=== PATIENT | female | born 1975 | race Caucasian/White ===

== ENCOUNTER 2017-12-07 06:20 | Outpatient (CLI) | payer BC ==
[~2017-12-07] VITALS: Ht 154.9 cm; Wt 130.6 kg
[2017-12-07] MEDS ORDERED: OMEP40CA36 PO (13:07)
[2017-12-07] MEDS ORDERED: LISI-552 PO (13:07)
== END 2017-12-07 13:11 ==
LOC: PREOP 06:20 → EDUNIT# 13:15
PROVIDERS: ATTEND Surgery
DX: Z01.818 Encounter for other preprocedural examination (principal)

== ENCOUNTER 2017-12-10 06:28 | Day surgery (SDC) | payer BC ==
[~2017-12-10] VITALS: Ht 154.9 cm; Wt 130.6 kg
[~2017-12-10 06:28] MED LIST: LISI-552 PO; OMEP40CA36 PO
[2017-12-10] MEDS ORDERED: SEVOFLURANE (ULTANE) 15 ML INHAL SOLN ONE ×4 (07:04→08:25)
[2017-12-10] MEDS ORDERED: LIDOCAINE PF 2% 5 ML (XYLOCAINE) VIAL ONE (07:04)
[2017-12-10] MEDS ORDERED: DEXAMETHASONE 10 MG/ML (DECADRON) 1 ML VIAL ONE (07:04)
[2017-12-10] MEDS ORDERED: SUCCINYLCHOLINE INJ 100 MG/5 ML SYR ONE (07:04)
[2017-12-10] MEDS ORDERED: proPOfol 200 MG/20 ML (DIPRIVAN) VIAL IV ONE (07:04)
[2017-12-10] MEDS ORDERED: ONDANSETRON 4 MG/2 ML (SDV) Z0FRAN ONE (07:04)
[2017-12-10] MEDS ORDERED: fentaNYL INJECTION 100 MCG/2 ML AMP ONE ×2 (07:07→08:58)
[2017-12-10] MEDS ORDERED: MIDAZOLAM 2 MG/2 ML (VERSED) VIAL ONE (07:07)
[2017-12-10] MEDS ORDERED: BUPIVACAINE 0.5% 30 ML (SENSORCAINE) VIAL ONE (07:12)
[2017-12-10] MEDS ORDERED: LIDOCAINE 1% INJ 20 ML 20 ML VIAL ONE (07:12)
[2017-12-10] MEDS: LACTATED RINGERS 1,000 ML IV PRN ×2 (07:25→09:00)
[2017-12-10] MEDS ORDERED: ceFAZolin 2 GM IV Premixed 50 ML ONE (07:30)
[2017-12-10 07:40] VITALS: BP 122/61
[2017-12-10] MEDS ORDERED: ceFAZolin 2 GM IV Premixed 50 ML IV ONE (07:45)
--- NOTE | 2017-12-10 08:04 | Progress Note-Pre Operative ---
Pre-Operative Progress Note H&P Reviewed The H&P was reviewed, patient examined and no changes noted. Date Seen by Provider: December 10, 2017 Time Seen by Provider: 08:00 Date H&P Reviewed: December 10, 2017 Time H&P Reviewed: 08:00 Pre-Operative Diagnosis: lipoma back CHAN MARTINEZ DO December 10, 2017 08:04
[2017-12-10] MEDS ORDERED: DOXY100C2 PO (08:06)
[2017-12-10] MEDS ORDERED: ASPI-999 PO (08:06)
[2017-12-10] MEDS ORDERED: ROCURONIUM 10 MG/ML 5 ML SYRINGE IV ONE (09:00)
--- NOTE | 2017-12-10 09:28 | Progress Note-Post Operative ---
Post-Operative Progess Note Surgeon (s)/Computer Lab Aide (s) Surgeon CHAN MARTINEZ DO Computer Lab Aide: na Pre-Operative Diagnosis lipoma back Post-Operative Diagnosis same Procedure & Operative Findings Date of Procedure 12/10/17 Procedure Performed/Findings excision back lipoma intramuscular and subcutaneous [id number] Anesthesia Type gen Estimated Blood Loss Estimated blood loss (mL): minimal Specimens/Packing Specimens Removed lipoma CHAN MARTINEZ DO December 10, 2017 09:28
--- NOTE | 2017-12-10 09:48 | Discharge Inst-Simple/Standard ---
Discharge Inst-Standard Patient Instructions/Follow Up Plan of Care/Instructions/FU: 2 weeks Kaya Activity as Tolerated: Yes Discharge Diet: Regular Diet Other Inst to Patient Follow up Appt: Make appointment for 2 week. Instructions: No lifting greater than 10 pounds. No strenuous activity. May shower in 24 hours, no tub bath or soaking. Use incentive spirometer at home as directed. No Smoking Skin/Wound Care: May remove bandages 24 hours. You need to leave the white strips over incision on they will fall off on their own. Symptoms to Report: Appetite Changes, Extremity Discoloration, Numbness/Tingling, Swelling Increased , Bleeding Excessive, Eyesight Changes, Pain Increased, Urine Color Change, Constipation(Persistent), Fever over 101 degree F, Pain/Pressure in chest, Urinating Difficulty, Cough Up/Vomit Blood, Heart Beat Irreg/Pounding, Pain/ Pressure in jaw, Vaginal Bleeding Increase, Cramps in feet or legs, Lightheadedness, Pain/Pressure in shoulder, Diarrhea(Persistent), Memory Changes Suddenly, Questions/Concerns, Weight gain consecutive days, Dizziness/ Fainting, Nausea/Vomiting, Shortness of Breath, Weight gain over 2 pounds If questions or concerns contact your physician Or seek help at emergency department. CHAN MARTINEZ DO December 10, 2017 09:48
[2017-12-10 10:35] VITALS: BP 111/80
[2017-12-10 11:05] VITALS: BP 106/72
[2017-12-10 11:40] VITALS: BP 119/75
--- NOTE | 2017-12-10 13:58 | Anesthesia-General Post-Op ---
General Patient Condition Mental Status/LOC: Same as Preop Cardiovascular: Satisfactory Nausea/Vomiting: Absent Respiratory: Satisfactory Pain: Controlled Complications: Absent Post Op Complications Complications None Follow Up Care/Instructions Patient Instructions None needed. Anesthesia/Patient Condition Patient Condition Patient is doing well, no complaints, stable vital signs, no apparent adverse anesthesia problems. JOSEFA MCDONNELL DO December 10, 2017 13:58
--- NOTE | 2017-12-10 16:37 | OPERATIVE REPORT ---
DATE OF SERVICE: 12/10/2017 PREOPERATIVE DIAGNOSIS: Back lipoma. POSTOPERATIVE DIAGNOSIS: Back lipoma. PROCEDURE: Excision of back lipoma 5 x 8 x 8 cm subcutaneous and intramuscular layers. SURGEON: Chan Kirkpatrick DO. ANESTHESIA: General. ESTIMATED BLOOD LOSS: Minimal. COMPLICATIONS: None. INDICATIONS: The patient is a 42-year-old female with a lipoma on her back that causes pain and discomfort. She wished to have it removed. She understands risks and benefits and wishes to proceed. Consent signed and on the chart. DESCRIPTION OF PROCEDURE: The patient was taken to the operating suite, she was prepped and draped in a sterile fashion in the left lateral recumbent position. A timeout was performed. A 15 blade scalpel was used to make an incision over the palpable mass. Cautery was used to dissect down to subcutaneous tissue when the lipoma was encountered. The blunt dissection was then continued around the lipoma that has had multiple fingers off of the mass as it continued to be mobilized around, it also went intramuscularly, which the muscles were able to be blunt finger dissection was able to free up off from in between the muscles. Once removed, the wound was irrigated with copious amounts of irrigation. Hemostasis had been achieved. The wound was then closed with 3-0 Vicryl in a layered fashion. Creating less wound space and the skin was then closed using 4-0 and 3-0 nylon sutures. The area was then washed and dried and sterile bandage was applied. The patient tolerated procedure well without any complications and taken to recovery room in stable condition. Job ID: [id number] DocumentID: [id number] Dictated Date: 12/10/2017 13:32:33 Professor Of Genetics Date: 12/10/2017 16:36:14 Dictated By: CHAN KIRKPATRICK DO [facility]
== END 2017-12-10 11:40 | disposition home or self-care (01) ==
LOC: SDC 06:28
PROVIDERS: ATTEND Surgery
DX: D17.1 Benign lipomatous neoplasm of skin and subcutaneous tissue of trunk (principal); I10 Essential (primary) hypertension; J44.9 Chronic obstructive pulmonary disease, unspecified; J45.909 Unspecified asthma, uncomplicated; F17.210 Nicotine dependence, cigarettes, uncomplicated; E66.01 Morbid (severe) obesity due to excess calories; Z68.43 Body mass index [BMI] 50.0-59.9, adult; Z79.899 Other long term (current) drug therapy
CPT/HCPCS: 87081; 88304

== ENCOUNTER 2018-09-08 22:33 | Emergency (ER) | payer BC, MEDICAID ==
[~2018-09-08] VITALS: Ht 154.9 cm; Wt 127.0 kg
[~2018-09-08 22:33] MED LIST changes: +ASPI-999 PO; +DOXY100C2 PO
--- OUTSIDE RECORDS SUMMARY | 2018-09-08 22:51 | XMS REPORT ---
Author Author ARLETTE DOAN [facility] Address [address] [place] [address] Care Team Providers Care Shoulder Sawyer Name Role Phone ARLETTE DOAN Unavailable PROBLEMS Type Condition ICD9-CM Code [id number] Code Onset Dates Condition Status SNOMED Code Problem Moderate persistent asthma with acute exacerbation J45.41 Active 329360924739508 Problem H. pylori infection A04.8 Active 980431886 Problem Essential hypertension I10 Active 55599890 Problem BMI 50.0-59.9, adult Z68.43 Active 797657103 ALLERGIES No Information ENCOUNTERS Encounter Location Date Diagnosis [place] [address] [place] [id number] [place] [address] 50159- 1779 Dec, [place] [address] 45972[address] 8066 November, H. pylori infection A04.8 and BMI 50.0-59.9, adult Z68.43 [place] [address] [id number] [place] [address] 44747- 7423 November, [place] [address] [place] [id number] [place] [address] 08245- 6819 November, [place] [address] [place] [id number] [place] [address] 68616- 8700 November, Moderate persistent asthma with acute exacerbation J45.41 [place] [address] 12391- 5316 November, BMI 50.0-59.9, adult Z68.43 ; Left upper quadrant pain R10.12 and H. pylori infection A04.8 [place] [address] [address] [id number] [place] [address] 33285- 5505 November, Intractable vomiting with nausea, unspecified vomiting type R11.2 [facility] [address] [place] [address] 72724- 7849 November, Atypical chest pain R07.89 ; Lipoma of torso D17.1 and BMI 50.0-59.9, adult Z68.43 [place] [address] [id number] [place] [address] 10728- 4557 Oct, Annual physical exam Z00.00 ; Intractable vomiting with nausea, unspecified vomiting type R11.2 ; Pap smear for cervical cancer screening Z12.4 and BMI 50.0-59.9, adult Z68.43 [facility] [place] [address] [address] [id number] [place] [address] 15447 -4143 19 Sep, 2017 [facility] [place] [address] [address] [id number] [place] [address] 46505 -8586 Sep, Dental infection K04.7 and BMI 50.0-59.9, adult Z68.43 [place] [address] [place] [id number] [place] [address] 25013- 9621 Sep, [place] [address] [place] [id number] [place] [address] 82864- 5511 Sep, [place] [address] [place] [id number] [place] [address] 15581- 5763 Sep, Chest pain, unspecified type R07.9 ; BMI 50.0-59.9, adult Z68.43 and Essential hypertension I10 IMMUNIZATIONS No Known Immunizations SOCIAL HISTORY Never Assessed REASON FOR VISIT Requests return call PLAN OF CARE VITAL SIGNS MEDICATIONS Unknown Medications RESULTS No Results PROCEDURES No Known procedures INSTRUCTIONS MEDICATIONS ADMINISTERED No Known Medications MEDICAL (GENERAL) HISTORY Type Description Date Medical History HTN Medical History ASTHMA Medical History PTSD Medical History fatty tumor Surgical History Hospitalization History asthma exacerbations several times
--- OUTSIDE RECORDS SUMMARY | 2018-09-08 22:51 | XMS REPORT ---
Author Author ARLETTE DOAN [facility] Address [address] [place] [address] Care Team Providers Care Certified Low Vision Therapist Name Role Phone ARLETTE DOAN Unavailable PROBLEMS Type Condition ICD9-CM Code XVD71-EP Code Onset Dates Condition Status SNOMED Code Problem Moderate persistent asthma with acute exacerbation J45.41 Active 575894445568456 Problem H. pylori infection A04.8 Active 590184181 Problem Essential hypertension I10 Active 64225829 Problem BMI 50.0-59.9, adult Z68.43 Active 016818467 ALLERGIES No Information ENCOUNTERS Encounter Location Date Diagnosis [place] [address] [place] [id number] [place] [address] 40032- 4860 Dec, [place] [address] 14993- 6719 November, H. pylori infection A04.8 and BMI 50.0-59.9, adult Z68.43 [place] [address] [place] [id number] [place] [address] 08313- 3306 November, [place] [address] [place] [id number] [place] [address] 50913- 9905 November, [place] [address] [place] [id number] [place] [address] 86313- 3156 November, Moderate persistent asthma with acute exacerbation J45.41 [place] [address] 08705- 5047 November, BMI 50.0-59.9, adult Z68.43 ; Left upper quadrant pain R10.12 and H. pylori infection A04.8 [place] [address] [place] [id number] [place] [address] 82320- 2234 November, Intractable vomiting with nausea, unspecified vomiting type R11.2 [facility] [place] [address] [place] [address] 58507- 7579 November, Atypical chest pain R07.89 ; Lipoma of torso D17.1 and BMI 50.0-59.9, adult Z68.43 [place] [address] [place] [id number] [place] [address] 34169- 6278 Oct, Annual physical exam Z00.00 ; Intractable vomiting with nausea, unspecified vomiting type R11.2 ; Pap smear for cervical cancer screening Z12.4 and BMI 50.0-59.9, adult Z68.43 [facility] [place] [address] [place] [address] [id number] [place] [address] 12796 -8548 19 Sep, 2017 [facility] [place] [address] [place] [address] [id number] [place] [address] 92847 -9770 Sep, Dental infection K04.7 and BMI 50.0-59.9, adult Z68.43 [place] [address] [place] [id number] [place] [address] 83727- 4042 Sep, [place] [address] [place] [id number] [place] [address] 98662- 0268 Sep, [place] [address] [place] [id number] [place] [address] 48400- 5533 Sep, Chest pain, unspecified type R07.9 ; [...]
--- OUTSIDE RECORDS SUMMARY | 2018-09-08 22:51 | XMS REPORT ---
Author Author ARLETTE DOAN [facility] Address [address] [place] [address] Care Team Providers Care Reciprocating Drill Operator Name Role Phone ARLETTE DOAN Unavailable PROBLEMS Type Condition ICD9-CM Code JTZ21-NX Code Onset Dates Condition Status SNOMED Code Problem Moderate persistent asthma with acute exacerbation J45.41 Active 130932613011869 Problem H. pylori infection A04.8 Active 406705118 Problem Essential hypertension I10 Active 30914386 Problem BMI 50.0-59.9, adult Z68.43 Active 645200567 ALLERGIES No Information ENCOUNTERS Encounter Location Date Diagnosis [place] [address] [place] [id number] [place] [address] 12297- 4034 Feb, [facility] [address] [address] [id number] [place] [address] 03475- 7134 Dec, [place] [address] 58720- 8815 November, H. pylori infection A04.8 and BMI 50.0-59.9, adult Z68.43 [place] [address] [place] [id number] [place] [address] 26740- 7537 November, [place] [address] [place] [id number] [place] [address] 00279- 2821 November, [place] [address] [place] [id number] [place] [address] 88952- 8099 November, Moderate persistent asthma with acute exacerbation J45.41 [facility] [address] [place] [id number] [place] [address] 62158- 4491 November, BMI 50.0-59.9, adult Z68.43 ; Left upper quadrant pain R10.12 and H. pylori infection A04.8 [place] [id number] [place] [address] 15334- 8287 November, Intractable vomiting with nausea, unspecified vomiting type R11.2 [place] [id number] [place] [address] 73344- 0392 November, Atypical chest pain R07.89 ; Lipoma of torso D17.1 and BMI 50.0-59.9, adult Z68.43 [place] [id number] [place] [address] 38452- 2990 Oct, Annual physical exam Z00.00 ; Intractable vomiting with nausea, unspecified vomiting type R11.2 ; Pap smear for cervical cancer screening Z12.4 and BMI 50.0-59.9, adult Z68.43 [facility] [place] [id number] [place] [address] 02930 -3869 19 Sep, 2017 [facility] WALK IN [address] 63683 -1324 17 Sep, 2017 Dental infection K04.7 and BMI 50.0-59.9, adult Z68.[address] 85716- 5616 Sep, [place] [id number] [place] [address] 10398- 9738 Sep, [place] [id number] [place] [address] 38131- 5177 Sep, Chest pain, unspecified type R07.9 ; BMI 50.0-59.9, adult Z68.43 and Essential hypertension I10 IMMUNIZATIONS No Known Immunizations SOCIAL HISTORY Never Assessed REASON FOR VISIT Nebulizer PLAN OF CARE VITAL SIGNS MEDICATIONS Medication Instructions Dosage Frequency Start Date End Date Duration Status Ipratropium-Albuterol 0.5-2.5 (3) MG/3ML Inhalation every 6 hrs 3 ml 6h November, Active RESULTS No Results PROCEDURES No Known procedures INSTRUCTIONS MEDICATIONS ADMINISTERED No Known Medications MEDICAL (GENERAL) HISTORY Type Description Date Medical History HTN Medical History ASTHMA Medical History PTSD Medical History fatty tumor Surgical History Hospitalization History asthma exacerbations several times
--- OUTSIDE RECORDS SUMMARY | 2018-09-08 22:51 | XMS REPORT ---
Author Author ARLETTE DOAN [facility] Address [address] [place] [address] Care Team Providers Care Child Care Centre Director Name Role Phone ARLETTE DOAN Unavailable PROBLEMS Type Condition ICD9-CM Code PCU29-ND Code Onset Dates Condition Status SNOMED Code Problem Moderate persistent asthma with acute exacerbation J45.41 Active 211445156785421 Problem H. pylori infection A04.8 Active 737388005 Problem Essential hypertension I10 Active 22699878 Problem BMI 50.0-59.9, adult Z68.43 Active 140087939 ALLERGIES Substance Reaction Event Type Date Status Vicodin Anaphylaxis Drug Allergy November, Active Tramadol HCl HIVES Drug Allergy November, Active Flagyl Unknown Drug Allergy November, Active Codeine Sulfate Anaphylaxis Drug Allergy November, Active Clarithromycin Unknown Drug Allergy November, Active Amoxicillin RASH Drug Allergy November, Active shellfish Anaphylaxis Non Drug Allergy November, Active ALL SSRI's Anaphylaxis Non Drug Allergy November, Active ENCOUNTERS Encounter Location Date Diagnosis [facility] [address] [place] [address] Dec, [facility] [address] [place] [id number] [place] [address] 41068- 4886 November, H. pylori infection A04.8 and BMI 50.0-59.9, adult Z68.43 [facility] [address] [place] [address] 46645- 6666 November, [facility] [address] [place] [id number] [place] [address] 85274- 6435 November, [facility] [address], [place] [address] 9116 November, Moderate persistent asthma with acute exacerbation J45.41 [facility] [address] [place] [id number] [place] [address] 71081- 0295 November, BMI 50.0-59.9, adult Z68.43 ; Left upper quadrant pain R10.12 and H. pylori infection A04.8 [place] [address] [place] [address] [id number] [place] [address] 49683- 2547 November, Intractable vomiting with nausea, unspecified vomiting type R11.2 [place] [id number] [place] [address] 58224- 6355 November, Atypical chest pain R07.89 ; Lipoma of torso D17.1 and BMI 50.0-59.9, adult Z68.43 [place] [address] [place] [address] [id number] [place] [address] 95074- 6279 Oct, Annual physical exam Z00.00 ; Intractable vomiting with nausea, unspecified vomiting type R11.2 ; Pap smear for cervical cancer screening Z12.4 and BMI 50.0-59.9, adult Z68.43 [facility] [address] [place] [id number] [place] [address] 75444 -7986 Sep, [facility] [place] [address] [id number] [place] [address] 46904 -8568 17 Sep, 2017 Dental infection K04.7 and BMI 50.0-59.9, adult Z68.43 [place] [address] [place] [address] [id number] [place] [address] 65131- 2782 Sep, [place] [address] [place] [address] [id number] [place] [address] 51379- 0107 Sep, [place] [address] [place] [address] [id number] [place] [address] 34186- 5756 Sep, Chest pain, unspecified type R07.9 ; BMI 50.0-59.9, adult Z68.43 and Essential hypertension I10 IMMUNIZATIONS No Known Immunizations SOCIAL HISTORY Never Assessed REASON FOR VISIT Med Reaction PLAN OF CARE VITAL SIGNS MEDICATIONS Unknown Medications RESULTS No Results PROCEDURES No Known procedures INSTRUCTIONS MEDICATIONS ADMINISTERED No Known Medications MEDICAL (GENERAL) HISTORY Type Description Date Medical History HTN Medical History ASTHMA Medical History PTSD Medical History fatty tumor Surgical History Hospitalization History asthma exacerbations several times
--- OUTSIDE RECORDS SUMMARY | 2018-09-08 22:51 | XMS REPORT ---
Author Author ARLETTE DOAN [facility] Address [address] [place] [address] Care Team Providers Care Evp Sales Name Role Phone ARLETTE DOAN Unavailable PROBLEMS Type Condition ICD9-CM Code YBY31-XJ Code Onset Dates Condition Status SNOMED Code Problem Moderate persistent asthma with acute exacerbation J45.41 Active 378929611361664 Problem H. pylori infection A04.8 Active 099800951 Problem Essential hypertension I10 Active 02003501 Problem BMI 50.0-59.9, adult Z68.43 Active 901629981 ALLERGIES Substance Reaction Event Type Date Status Vicodin Anaphylaxis Drug Allergy Sep, Active Tramadol HCl HIVES Drug Allergy Sep, Active Codeine Sulfate Anaphylaxis Drug Allergy Sep, Active Amoxicillin RASH Drug Allergy Sep, Active ALL SSRI's Anaphylaxis Non Drug Allergy Sep, Active ENCOUNTERS Encounter Location Date Diagnosis [place] [address] [place] [address] 74512- 1396 Dec, [facility] [address] [place] [address] [id number] [place] [address] 84486- 8056 November, H. pylori infection A04.8 and BMI 50.0-59.9, adult Z68.43 [facility] [address] [address]- 2043 November, [facility] [address] [address]- 4[address] November, [facility] [address] [place] [address] [id number] [place] [address] 48963- 9593 November, Moderate persistent asthma with acute exacerbation J45.41 [facility] [address] [place] [address] 64474- 9895 November, BMI 50.0-59.9, adult Z68.43 ; Left upper quadrant pain R10.12 and H. pylori infection A04.8 [place] [id number] [place] [address] 27487- 3051 November, Intractable vomiting with nausea, unspecified vomiting type R11.2 [place] [id number] [place] [address] 98349- 7784 November, Atypical chest pain R07.89 ; Lipoma of torso D17.1 and BMI 50.0-59.9, adult Z68.43 [place] [address] [place] [address] [id number] [place] [address] 24426- 8864 Oct, Annual physical exam Z00.00 ; Intractable vomiting with nausea, unspecified vomiting type R11.2 ; Pap smear for cervical cancer screening Z12.4 and BMI 50.0-59.9, adult Z68.43 [facility] IN [place] [id number] [place] [address] 13686 -4362 19 Sep, 2017 [facility] IN [place] [id number] [place] [address] 92600 -7155 Sep, Dental infection K04.7 and BMI 50.0-59.9, adult Z68.43 [place] [address] [place] [address] [id number] [place] [address] 65319- 4375 Sep, [place] [id number] [place] [address] 63752- 9537 Sep, [place] [id number] [place] [address] 95671- 1186 Sep, Chest pain, unspecified type R07.9 ; BMI 50.0-59.9, adult Z68.43 and Essential hypertension I10 IMMUNIZATIONS No Known Immunizations SOCIAL HISTORY Never Assessed REASON FOR VISIT Establish ABEBE Gracia, Went to hospital in [place], [place] 2 weeks ago for chest pain and left arm pain. She was checked for an GA but the studies were all negative. States she is set up to see cardiology 09/22 - Dr. García. -BAEBE Wetzel PLAN OF CARE Activity Details Follow Up 2 Months with [facility] appt Reason: VITAL SIGNS Height 61 in 2017-09-17 Weight 315 lbs 2017-09-17 Temperature 98 degrees Fahrenheit 2017-09-17 Heart Rate 90 bpm 2017-09-17 Respiratory Rate 20 2017-09-17 BMI 59.51 kg/m2 2017-09-17 Blood pressure systolic 110 mmHg 2017-09-17 Blood pressure diastolic 70 mmHg 2017-09-17 MEDICATIONS Medication Instructions Dosage Frequency Start Date End Date Duration Status Ventolin HFA 108 (90 Base) MCG/ACT Inhalation every 6 hrs 2 puffs as needed 6h Active Famotidine 20 MG Orally Once a day 1 tablet at bedtime 24h Active EPINEPHrine 0.15 MG/0.3ML Active Lisinopril 20 MG Orally Once a day 1 tablet 24h Active RESULTS No Results PROCEDURES No Known procedures INSTRUCTIONS MEDICATIONS ADMINISTERED No Known Medications MEDICAL (GENERAL) HISTORY Type Description Date Medical History HTN Medical History ASTHMA Medical History PTSD Medical History fatty tumor Surgical History Hospitalization History asthma exacerbations several times
--- OUTSIDE RECORDS SUMMARY | 2018-09-08 22:51 | XMS REPORT ---
Author Author KIEL العلي [facility] IN [facility] Address [address] [place] [address] Care Team Providers Care Housing Specialist Name Role Phone KIEL العلي Unavailable PROBLEMS Type Condition ICD9-CM Code [id number] Code Onset Dates Condition Status SNOMED Code Problem Moderate persistent asthma with acute exacerbation J45.41 Active 783124133847240 Problem H. pylori infection A04.8 Active 968107523 Problem Essential hypertension I10 Active 60833161 Problem BMI 50.0-59.9, adult Z68.43 Active 879848104 ALLERGIES Substance Reaction Event Type Date Status Vicodin Anaphylaxis Drug Allergy November, Active Tramadol HCl HIVES Drug Allergy November, Active Codeine Sulfate Anaphylaxis Drug Allergy November, Active Amoxicillin RASH Drug Allergy November, Active ALL SSRI's Anaphylaxis Non Drug Allergy November, Active shellfish Anaphylaxis Non Drug Allergy November, Active ENCOUNTERS Encounter Location Date Diagnosis [facility] [id number] [place] [address] 88132- 0427 Feb, [facility] [id number] [place] [address] 27442- 8818 Dec, [facility] [id number] [place] [address] 68166- 2766 November, H. pylori infection A04.8 and BMI 50.0-59.9, adult Z68.43 [facility] [id number] [place] [address] 46032- 6596 November, [facility] [address] [address]- 5553 November, [facility] [id number] [place] [address] 81913- 5556 November, Moderate persistent asthma with acute exacerbation J45.41 [place] [address] [place] [address] 01419- 7705 November, BMI 50.0-59.9, adult Z68.43 ; Left upper quadrant pain R10.12 and H. 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 and BMI 50.0-59.9, adult Z68.43 [place] [id number] [place] [address] 29177- 5838 Oct, Annual physical exam Z00.00 ; Intractable vomiting with nausea, unspecified vomiting type R11.2 ; Pap smear for cervical cancer screening Z12.4 and BMI 50.0-59.9, adult Z68.43 [facility] [id number] [place] [address] 79469 -9830 Sep, [facility] [id number] [place] [address] 70666 -6111 Sep, Dental infection K04.7 and BMI 50.0-59.9, adult Z68.43 [place] [id number] [place] [address] 65004- 3322 Sep, [place] [id number] [place] [address] 99758- 7253 Sep, [place] [id number] [place] [address] 23312- 9913 Sep, Chest pain, unspecified type R07.9 ; BMI 50.0-59.9, adult Z68.43 and Essential hypertension I10 IMMUNIZATIONS No Known Immunizations SOCIAL HISTORY Never Assessed REASON FOR VISIT Stomach pain-began last night, occurs after eating, states it was like a burning sensation-AHarrymanRN PLAN OF CARE Activity Details Follow Up 2 Weeks, prn Reason:if abdominal pain persists after treatment VITAL SIGNS Height 61 in 2017-11-25 Weight 294.7 lbs 2017-11-25 Temperature 97.0 degrees Fahrenheit 2017-11-25 Heart Rate 84 bpm 2017-11-25 Respiratory Rate 20 2017-11-25 BMI 55.68 kg/m2 2017-11-25 Blood pressure systolic 122 mmHg 2017-11-25 Blood pressure diastolic 70 mmHg 2017-11-25 MEDICATIONS Medication Instructions Dosage Frequency Start Date End Date Duration Status Lisinopril 20 mg Orally Once a day 1 tablet 24h 90 days Active Ventolin HFA 108 (90 Base) MCG/ACT Inhalation every 6 hrs 2 puffs as needed 6h Active Aspirin 81 MG Orally Once a day 1 tablet 24h November, Active Clarithromycin 500 mg Orally every 12 hrs 1 tablet 12h November,November 14 days Active EPINEPHrine 0.15 MG/0.3ML Active Omeprazole 40 mg Orally Once a day 1 capsule 24h November, 90 days Active [facility] Omeprazole 20 mg Orally twice a day 1 tablet 12h November, 14 days Active Chantix Starting Month Mynor 0.5 MG X 11 & 1 MG X 42 0.5mg x11 then 1mg x42 November, Active Metronidazole 500 mg Orally every 8 hrs 1 tablet 8h November, November, 14 days Active RESULTS Name Result Date Reference Range H PYLORI (IN HOUSE) 2017-11-25 H. PYLORI pos Control pos Lot # [id number] Exp date 06/02/18 GLUCOSE FINGERSTICK (IN HOUSE) 2017-11-25 GLU FINGERSTICK 141 PC Lot # [id number] Exp date 02/12/18 PROCEDURES Procedure Date Ordered Result Body Site IMMUNOASSAY,INFECTIOUS AGENT November 25, 2017 GLUCOSE BLOOD TEST November 25, 2017 INSTRUCTIONS MEDICATIONS ADMINISTERED No Known Medications MEDICAL (GENERAL) HISTORY Type Description Date Medical History HTN Medical History ASTHMA Medical History PTSD Medical History fatty tumor Surgical History Hospitalization History asthma exacerbations several times
--- OUTSIDE RECORDS SUMMARY | 2018-09-08 22:51 | XMS REPORT ---
Author Author ARLETTE DOAN [facility] Address [address] [place] [address] Care Team Providers Care Horn Player Name Role Phone ARLETTE DOAN Unavailable PROBLEMS Type Condition ICD9-CM Code [id number] Code Onset Dates Condition Status SNOMED Code Problem Moderate persistent asthma with acute exacerbation J45.41 Active 504311142337732 Problem H. pylori infection A04.8 Active 836240433 Problem Essential hypertension I10 Active 90378317 Problem BMI 50.0-59.9, adult Z68.43 Active 163953061 ALLERGIES Substance Reaction Event Type Date Status [...] November, Active ENCOUNTERS Encounter Location Date Diagnosis [facility] [address] [address] Dec, [facility] [address] [place] [address] 83603- 8465 November, H. pylori infection A04.8 and BMI 50.0-59.9, adult Z68.43 [facility] [address] [address] November, [facility] [id number] [place] [address] 02655- 4051 November, [facility] [address] [address] November, Moderate persistent asthma with acute exacerbation J45.41 [facility] [id number] [place] [address] 12086- 4558 November, BMI 50.0-59.9, adult Z68.43 ; Left upper quadrant pain R10.12 and H. pylori infection A04.8 [place] [id number] [place] [address] 03083- 0472 November, Intractable vomiting with nausea, unspecified vomiting type R11.2 [place] [id number] [place] [address] 33953- 2806 November, Atypical chest pain R07.89 ; Lipoma of torso D17.1 and BMI 50.0-59.9, adult Z68.43 [place] [id number] [place] [address] 16175- 9528 Oct, Annual physical exam Z00.00 ; Intractable vomiting with nausea, unspecified vomiting type R11.2 ; Pap smear for cervical cancer screening Z12.4 and BMI 50.0-59.9, adult Z68.43 [facility] [id number] [place] [address] 93385 -4038 Sep, [facility] [place] [id number] [place] [address] 81818 -3202 17 Sep, 2017 Dental infection K04.7 and BMI 50.0-59.9, adult Z68.43 [place] [id number] [place] [address] 70961- 0663 Sep, [place] [id number] [place] [address] 19704- 6644 Sep, [place] [id number] [place] [address] 12610- 3259 Sep, Chest pain, unspecified type R07.9 ; BMI 50.0-59.9, adult Z68.43 and Essential hypertension I10 IMMUNIZATIONS No Known Immunizations SOCIAL HISTORY Never Assessed REASON FOR VISIT [facility]. [facility] OF CARE Activity Details Follow Up f/u after surgery with [facility] Reason: VITAL SIGNS Height 61 in 2017-12-08 Weight 295 lbs 2017-12-08 Temperature 98.3 degrees Fahrenheit 2017-12-08 Heart Rate 92 bpm 2017-12-08 Respiratory Rate 22 2017-12-08 BMI 55.73 kg/m2 2017-12-08 Blood pressure systolic 100 mmHg 2017-12-08 Blood pressure diastolic 70 mmHg 2017-12-08 MEDICATIONS Medication Instructions Dosage Frequency Start Date End Date Duration Status EPINEPHrine 0.15 MG/0.3ML Active Doxycycline Hyclate 100 mg Orally twice a day 1 capsule 12h November, Dec, 10 day(s) Active Ventolin HFA 108 (90 Base) MCG/ACT Inhalation every 6 hrs 2 puffs as needed 6h Active Lisinopril 20 mg Orally Once a day 1 tablet 24h 90 days Active Omeprazole 40 mg Orally Once a day 1 capsule 24h November, 90 days Active Aspirin 81 MG Orally Once a day 1 tablet 24h November, Active RESULTS No Results PROCEDURES No Known procedures INSTRUCTIONS MEDICATIONS ADMINISTERED No Known Medications MEDICAL (GENERAL) HISTORY Type Description Date Medical History HTN Medical History ASTHMA Medical History PTSD Medical History fatty tumor Surgical History Hospitalization History asthma exacerbations several times
--- OUTSIDE RECORDS SUMMARY | 2018-09-08 22:52 | XMS REPORT ---
Author Author ARLETTE DOAN [facility] Address [address] [place] [address] Care Team Providers Care Motorcycle Police Name Role Phone ARLETTE DOAN Unavailable PROBLEMS Type Condition ICD9-CM Code [id number] Code Onset Dates Condition Status SNOMED Code Problem Moderate persistent asthma with acute exacerbation J45.41 Active 290379049896361 Problem H. pylori infection A04.8 Active 705142060 Problem Essential hypertension I10 Active 26066244 Problem BMI 50.0-59.9, adult Z68.43 Active 137864211 ALLERGIES Substance Reaction Event Type Date Status Vicodin Anaphylaxis Drug Allergy Sep, Active Tramadol HCl HIVES Drug Allergy Sep, Active Codeine Sulfate Anaphylaxis Drug Allergy Sep, Active Amoxicillin RASH Drug Allergy Sep, Active ALL SSRI's Anaphylaxis Non Drug Allergy Sep, Active shellfish Anaphylaxis Non Drug Allergy Sep, Active ENCOUNTERS Encounter Location Date Diagnosis [place] [address] [place] [address] 89236- 2898 Feb, [facility] [address] [place] [address] 63970- 3245 Dec, [facility] [id number] [place] [address] 46656- 1272 November, H. pylori infection A04.8 and BMI 50.0-59.9, adult Z68.43 [facility] [address] [place] [address] 15600- 2704 November, [facility] [id number] [place] [address] 72281- 6698 November, [facility] [id number] [place] [address] 09598- 8253 November, Moderate persistent asthma with acute exacerbation J45.41 [place] [address] [place] [address] 30776- 8879 November, BMI 50.0-59.9, adult Z68.43 ; Left upper quadrant pain R10.12 and H. pylori infection A04.8 [place] [id number] [place] [address] 02430- 5941 November, Intractable vomiting with nausea, unspecified vomiting type R11.2 [place] [id number] [place] [address] 69110- 9531 November, Atypical chest pain R07.89 ; Lipoma of torso D17.1 and BMI 50.0-59.9, adult Z68.43 [place] [id number] [place] [address] 45790- 6999 Oct, Annual physical exam Z00.00 ; Intractable vomiting with nausea, unspecified vomiting type R11.2 ; Pap smear for cervical cancer screening Z12.4 and BMI 50.0-59.9, adult Z68.43 [facility] [id number] [place] [address] 27494 -8217 Sep, [facility] [place] [id number] [place] [address] 29370 -3077 Sep, Dental infection K04.7 and BMI 50.0-59.9, adult Z68.43 [place] [id number] [place] [address] 13147- 7154 Sep, [place] [id number] [place] [address] 54474- 1157 Sep, [place] [id number] [place] [address] 14139- 0481 Sep, Chest pain, unspecified type R07.9 ; [...]
--- OUTSIDE RECORDS SUMMARY | 2018-09-08 22:52 | XMS REPORT ---
Author Author MARSHAL JUÁREZ [facility] IN [facility] Address [address] [place] [address] Care Team Providers Care Anesthesiologist/Physician Name Role Phone MARSHAL JUÁREZ Unavailable PROBLEMS Type Condition ICD9-CM Code QTU71-RE Code Onset Dates Condition Status SNOMED Code Problem Moderate persistent asthma with acute exacerbation J45.41 Active 014991411418054 Problem H. pylori infection A04.8 Active 538440868 Problem Essential hypertension I10 Active 99028192 Problem BMI 50.0-59.9, adult Z68.43 Active 760778952 ALLERGIES Substance Reaction Event Type Date Status Vicodin Anaphylaxis Drug Allergy Sep, Active Tramadol HCl HIVES Drug Allergy Sep, Active Codeine Sulfate Anaphylaxis Drug Allergy Sep, Active Amoxicillin RASH Drug Allergy Sep, Active shellfish Anaphylaxis Non Drug Allergy Sep, Active ALL SSRI's Anaphylaxis Non Drug Allergy Sep, Active ENCOUNTERS Encounter Location Date Diagnosis [facility] [address] [place] [address] 59844- 2424 Feb, [facility] [id number] [place] [address] 03763- 0960 Dec, [facility] [id number] [place] [address] 61460- 9121 November, H. pylori infection A04.8 and BMI 50.0-59.9, adult Z68.43 [facility] [id number] [place] [address] 86896- 9134 November, [facility] [id number] [place] [address] 18554- 3812 November, [facility] [id number] [place] [address] 13885- 2049 November, Moderate persistent asthma with acute exacerbation J45.41 [place] [address] [address]- 4207 November, BMI 50.0-59.9, adult Z68.43 ; Left upper quadrant pain R10.12 and H. pylori infection A04.8 [place] [id number] [place] [address] 78253- 4682 November, Intractable vomiting with nausea, unspecified vomiting type R11.2 [place] [id number] [place] [address] 98409- 8471 November, Atypical chest pain R07.89 ; Lipoma of torso D17.1 and BMI 50.0-59.9, adult Z68.43 [place] [id number] [place] [address] 53826- 1599 Oct, Annual physical exam Z00.00 ; Intractable vomiting with nausea, unspecified vomiting type R11.2 ; Pap smear for cervical cancer screening Z12.4 and BMI 50.0-59.9, adult Z68.43 [facility] [id number] [place] [address] 05587 -5949 Sep, [facility] [id number] [place] [address] 72476 -1118 Sep, Dental infection K04.7 and BMI 50.0-59.9, adult Z68.43 [place] [id number] [place] [address] 04479- 7410 Sep, [place] [id number] [place] [address] 99323- 7383 Sep, [place] [id number] [place] [address] 54728- 9423 Sep, Chest pain, unspecified type R07.9 ; BMI 50.0-59.9, adult Z68.43 and Essential hypertension I10 IMMUNIZATIONS No Known Immunizations SOCIAL HISTORY Never Assessed REASON FOR VISIT dental pain on right upper in the front. states she doesnt want pain meds...ibuprofen will work... just wants an antibiotic for an infection. [email or web address] PLAN OF CARE Activity Details Follow Up see dentist GULSHAN Reason: VITAL SIGNS Height 61 in 2017-10-03 Weight 316.2 lbs 2017-10-03 Temperature 97.5 degrees Fahrenheit 2017-10-03 Heart Rate 88 bpm 2017-10-03 Respiratory Rate 20 2017-10-03 BMI 59.74 kg/m2 2017-10-03 Blood pressure systolic 116 mmHg 2017-10-03 Blood pressure diastolic 74 mmHg 2017-10-03 MEDICATIONS Medication Instructions Dosage Frequency Start Date End Date Duration Status Lisinopril 20 MG Orally Once a day 1 tablet 24h Active Keflex 500 MG Orally every 8 hrs 1 capsule 8h Sep, Sep, 10 day(s) Active Ventolin HFA 108 (90 Base) MCG/ACT Inhalation every 6 hrs 2 puffs as needed 6h Active Famotidine 20 MG Orally Once a day 1 tablet at bedtime 24h Active EPINEPHrine 0.15 MG/0.3ML Active RESULTS No Results PROCEDURES No Known procedures INSTRUCTIONS MEDICATIONS ADMINISTERED No Known Medications MEDICAL (GENERAL) HISTORY Type Description Date Medical History HTN Medical History ASTHMA Medical History PTSD Medical History fatty tumor Surgical History Hospitalization History asthma exacerbations several times
--- OUTSIDE RECORDS SUMMARY | 2018-09-08 22:52 | XMS REPORT ---
Author Author ARLETTE DOAN [facility] Address [address] [place] [address] Care Team Providers Care Destination Imagination Coordinator Name Role Phone ARLETTE DOAN Unavailable PROBLEMS Type Condition ICD9-CM Code [id number] Code Onset Dates Condition Status SNOMED Code Problem Moderate persistent asthma with acute exacerbation J45.41 Active 526921215907253 Problem H. pylori infection A04.8 Active 335642605 Problem Essential hypertension I10 Active 58872913 Problem BMI 50.0-59.9, adult Z68.43 Active 948234169 ALLERGIES Substance Reaction Event Type Date Status Vicodin Anaphylaxis Drug Allergy November, Active Tramadol HCl HIVES Drug Allergy November, Active Codeine Sulfate Anaphylaxis Drug Allergy November, Active Amoxicillin RASH Drug Allergy November, Active ALL SSRI's Anaphylaxis Non Drug Allergy November, Active shellfish Anaphylaxis Non Drug Allergy November, Active ENCOUNTERS Encounter Location Date Diagnosis [place] [address] [place] [address] 73953- 5687 Feb, [facility] [address] [place] [address] 43107- 1715 Dec, [facility] [id number] [place] [address] 54751- 4623 November, H. pylori infection A04.8 and BMI 50.0-59.9, adult Z68.43 [facility] [address] [place] [address] 44898- 9638 November, [facility] [id number] [place] [address] 89253- 5753 November, [facility] [id number], [place] [address]- 0985 November, Moderate persistent asthma with acute exacerbation J45.41 [place] [address] [place] [address] 95018- 0080 November, BMI 50.0-59.9, adult Z68.43 ; Left upper quadrant pain R10.12 and H. pylori infection A04.8 [place] [id number] [place] [address] 84127- 6777 November, Intractable vomiting with nausea, unspecified vomiting type R11.2 [place] [id number] [place] [address] 87992- 6695 November, Atypical chest pain R07.89 ; Lipoma of torso D17.1 and BMI 50.0-59.9, adult Z68.43 [place] [id number] [place] [address] 64267- 2894 Oct, Annual physical exam Z00.00 ; Intractable vomiting with nausea, unspecified vomiting type R11.2 ; Pap smear for cervical cancer screening Z12.4 and BMI 50.0-59.9, adult Z68.43 [facility] [id number] [place] [address] 01146 -2512 Sep, [facility] [id number] [place] [address] 35289 -9055 Sep, Dental infection K04.7 and BMI 50.0-59.9, adult Z68.43 [place] [id number] [place] [address] 87044- 9888 Sep, [place] [id number] [place] [address] 66511- 2359 Sep, [place] [id number] [place] [address] 00505- 0734 Sep, Chest pain, unspecified type R07.9 ; BMI 50.0-59.9, adult Z68.43 and Essential hypertension I10 IMMUNIZATIONS No Known Immunizations SOCIAL HISTORY Never Assessed REASON FOR VISIT f/u cardiology WB-MA PLAN OF CARE Activity Details Follow Up 6 Months with [facility] Weight management Reason: VITAL SIGNS Height 61 in 2017-11-17 Weight 302 lbs 2017-11-17 Temperature 98 degrees Fahrenheit 2017-11-17 Heart Rate 84 bpm 2017-11-17 Respiratory Rate 20 2017-11-17 BMI 57.06 kg/m2 2017-11-17 Blood pressure systolic 134 mmHg 2017-11-17 Blood pressure diastolic 86 mmHg 2017-11-17 MEDICATIONS Medication Instructions Dosage Frequency Start Date End Date Duration Status Ventolin HFA 108 (90 Base) MCG/ACT Inhalation every 6 hrs 2 puffs as needed 6h Active EPINEPHrine 0.15 MG/0.3ML Active Lisinopril 20 MG Orally Once a day 1 tablet 24h Active Prilosec 40 mg Orally Once a day 1 capsule 24h Oct, 30 day(s) Active Famotidine 20 MG Orally Once a day 1 tablet at bedtime 24h Not- Taking RESULTS No Results PROCEDURES No Known procedures INSTRUCTIONS MEDICATIONS ADMINISTERED No Known Medications MEDICAL (GENERAL) HISTORY Type Description Date Medical History HTN Medical History ASTHMA Medical History PTSD Medical History fatty tumor Surgical History Hospitalization History asthma exacerbations several times
--- OUTSIDE RECORDS SUMMARY | 2018-09-08 22:52 | XMS REPORT ---
Author Author JENIFER Talbert Organization [facility] Address [address] [address] Care Team Providers Care Addressograph Operator Name Role Phone JENIFER Talbert Unavailable PROBLEMS Type Condition ICD9-CM Code QJD39-NS Code Onset Dates Condition Status SNOMED Code Problem Moderate persistent asthma with acute exacerbation J45.41 Active 854206315815712 Problem H. pylori infection A04.8 Active 054617511 Problem Essential hypertension I10 Active 15917162 Problem BMI 50.0-59.9, adult Z68.43 Active 095693589 ALLERGIES Substance Reaction Event Type Date Status Vicodin Anaphylaxis Drug Allergy Oct, Active Tramadol HCl HIVES Drug Allergy Oct, Active Codeine Sulfate Anaphylaxis Drug Allergy Oct, Active Amoxicillin RASH Drug Allergy Oct, Active ALL SSRI's Anaphylaxis Non Drug Allergy Oct, Active shellfish Anaphylaxis Non Drug Allergy Oct, Active ENCOUNTERS Encounter Location Date Diagnosis [facility] [place] [id number] [place] [address] Feb, [facility] [place] [address], [place] [address] Dec, [facility] [place] [id number] [place] [address] 10138- 3989 November, H. pylori infection A04.8 and BMI 50.0-59.9, adult Z68.43 [facility] [place] [id number] [place] [address] 84338- 8548 November, [facility] [place] [id number] [place] [address] 83931- 9766 November, [facility] [place] [id number] [place] [address] 20565- 6500 November, Moderate persistent asthma with acute exacerbation J45.41 [place] [id number] [place] [address] 97430- 0540 November, BMI 50.0-59.9, adult Z68.43 ; Left upper quadrant pain R10.12 and H. pylori infection A04.8 [place] [id number] [place] [address] 31330- 0878 November, Intractable vomiting with nausea, unspecified vomiting type R11.2 [place] [id number] [place] [address] 31747- 6187 November, Atypical chest pain R07.89 ; Lipoma of torso D17.1 and BMI 50.0-59.9, adult Z68.43 [place] [id number] [place] [address] 59969- 0421 Oct, Annual physical exam Z00.00 ; Intractable vomiting with nausea, unspecified vomiting type R11.2 ; Pap smear for cervical cancer screening Z12.4 and BMI 50.0-59.9, adult Z68.43 [facility] [place] [id number] [place] [address] 18195 -[phone] Sep, [facility] [place] [id number] [place] [address] 01336 -4072 Sep, Dental infection K04.7 and BMI 50.0-59.9, adult Z68.43 [place] [id number] [place] [address] 53615- 2783 Sep, [place] [id number] [place] [address] 41658- 4059 Sep, [place] [id number] [place] [address] 54584- 5239 Sep, Chest pain, unspecified type R07.9 ; BMI 50.0-59.9, adult Z68.43 and Essential hypertension I10 IMMUNIZATIONS No Known Immunizations SOCIAL HISTORY Never Assessed REASON FOR VISIT Annual physical (female) / vomiting 2-3 times/day when eats carbs x1 month----- DBennettRN PLAN OF CARE Activity Details Follow Up prn Reason: VITAL SIGNS Height 61 in 2017-11-10 Weight 303 lbs 2017-11-10 Temperature 97.9 degrees Fahrenheit 2017-11-10 Heart Rate 90 bpm 2017-11-10 Respiratory Rate 20 2017-11-10 BMI 57.25 kg/m2 2017-11-10 Blood pressure systolic 114 mmHg 2017-11-10 Blood pressure diastolic 80 mmHg 2017-11-10 MEDICATIONS Medication Instructions Dosage Frequency Start Date End Date Duration Status Prilosec 40 mg Orally Once a day 1 capsule 24h Oct, 30 day(s) Active Lisinopril 20 MG Orally Once a day 1 tablet 24h Active EPINEPHrine 0.15 MG/0.3ML Active Famotidine 20 MG Orally Once a day 1 tablet at bedtime 24h Active Ventolin HFA 108 (90 Base) MCG/ACT Inhalation every 6 hrs 2 puffs as needed 6h Active RESULTS No Results PROCEDURES Procedure Date Ordered Result Body Site VENIPUNCT, ROUTINE* November 10, 2017 SPECIMEN HANDLING November 10, 2017 COMPREHEN METABOLIC PANEL November 10, 2017 ASSAY THYROID STIM HORMONE November 10, 2017 TRICHOMONAS ASSAY W/OPTIC November 10, 2017 Bacterial Vaginosis In House November 10, 2017 No Charge November 10, 2017 LIPID PANEL November 10, 2017 ASSAY OF FREE THYROXINE November 10, 2017 CULTURE, BACTERIA, OTHER November 10, 2017 INSTRUCTIONS MEDICATIONS ADMINISTERED No Known Medications MEDICAL (GENERAL) HISTORY Type Description Date Medical History HTN Medical History ASTHMA Medical History PTSD Medical History fatty tumor Surgical History Hospitalization History asthma exacerbations several times
--- OUTSIDE RECORDS SUMMARY | 2018-09-08 22:52 | XMS REPORT ---
Author Author ARLETTE DOAN [facility] Address [address] [place] [address] Care Team Providers Care Care Center Manager Name Role Phone ARLETTE DOAN Unavailable PROBLEMS Type Condition ICD9-CM Code ABA77-EZ Code Onset Dates Condition Status SNOMED Code Problem Moderate persistent asthma with acute exacerbation J45.41 Active 744560074571357 Problem H. pylori infection A04.8 Active 567693944 Problem Essential hypertension I10 Active 38711844 Problem BMI 50.0-59.9, adult Z68.43 Active 133826986 ALLERGIES No Information ENCOUNTERS Encounter Location Date Diagnosis [place] [id number] [place] [address] [phone]- 0390 Feb, [facility] [id number] [place] [address] 73432- 1687 Dec, [place] [address] [address] November, H. pylori infection A04.8 and BMI 50.0-59.9, adult Z68.43 [place] [id number] [place] [address] 39706- 4956 November, [place] [id number] [place] [address] 47640- 5175 November, [place] [id number] [place] [address] 67997- 5397 November, Moderate persistent asthma with acute exacerbation J45.41 [facility] [id number] [place] [address] 40834- 1726 November, BMI 50.0-59.9, adult Z68.43 ; Left upper quadrant pain R10.12 and H. 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 and BMI 50.0-59.9, adult Z68.43 [place] [id number] [place] [address] 65563- 6049 Oct, Annual physical exam Z00.00 ; Intractable vomiting with nausea, unspecified vomiting type R11.2 ; Pap smear for cervical cancer screening Z12.4 and BMI 50.0-59.9, adult Z68.43 [facility] [place] [id number] [place] [address] 74853 -[phone] 19 Sep, 2017 [facility] [place] [id number] [place] [address] 90306 -2812 17 Sep, 2017 Dental infection K04.7 and BMI 50.0-59.9, adult Z68.43 [place] [id number] [place] [address] 43949- 3092 Sep, [place] [id number] [place] [address] 21394- 0871 Sep, [place] [id number] [place] [address] 03722- 0103 Sep, Chest pain, unspecified type R07.9 ; BMI 50.0-59.9, adult Z68.43 and Essential hypertension I10 IMMUNIZATIONS No Known Immunizations SOCIAL HISTORY Never Assessed REASON FOR VISIT Medication question PLAN OF CARE VITAL SIGNS MEDICATIONS Unknown Medications RESULTS No Results PROCEDURES No Known procedures INSTRUCTIONS MEDICATIONS ADMINISTERED No Known Medications MEDICAL (GENERAL) HISTORY Type Description Date Medical History HTN Medical History ASTHMA Medical History PTSD Medical History fatty tumor Surgical History Hospitalization History asthma exacerbations several times
--- OUTSIDE RECORDS SUMMARY | 2018-09-08 22:52 | XMS REPORT ---
Author Author MARSHAL JUÁREZ [facility] Address [address] [place] [address] Care Team Providers Care Medical Claims Processor Name Role Phone MARSHAL JUÁREZ Unavailable PROBLEMS Type Condition ICD9-CM Code JAR46-NO Code Onset Dates Condition Status SNOMED Code Problem Moderate persistent asthma with acute exacerbation J45.41 Active 375817059926638 Problem H. pylori infection A04.8 Active 349980181 Problem Essential hypertension I10 Active 50947951 Problem BMI 50.0-59.9, adult Z68.43 Active 412428210 ALLERGIES No Information ENCOUNTERS Encounter Location Date Diagnosis [place] [id number] [place] [address] 59119- 2148 Feb, [place] [id number] [place] [address] 63618- 6312 Dec, [place] [id number] [place] [address] 45312- 1409 November, H. pylori infection A04.8 and BMI 50.0-59.9, adult Z68.43 [place] [id number] [place] [address] 17897- 2760 November, [facility] [id number] [place] [address] 30645- 1388 November, [place] [address] 81790- 4166 November, Moderate persistent asthma with acute exacerbation J45.41 [facility] [id number] [place] [address] 04881- 3054 November, BMI 50.0-59.9, adult Z68.43 ; Left upper quadrant pain R10.12 and H. pylori infection A04.8 [place] [id number] [place] [address] 44672- 9155 November, Intractable vomiting with nausea, unspecified vomiting type R11.2 [place] [id number] [place] [address] 34414- 9529 November, Atypical chest pain R07.89 ; Lipoma of torso D17.1 and BMI 50.0-59.9, adult Z68.43 [place] [id number] [place] [address] 77917- 1670 Oct, Annual physical exam Z00.00 ; Intractable vomiting with nausea, unspecified vomiting type R11.2 ; Pap smear for cervical cancer screening Z12.4 and BMI 50.0-59.9, adult Z68.43 [facility] [place] [id number] [place] [address] 48200 -6156 Sep, [facility] IN [address] [phone] Sep, Dental infection K04.7 and BMI 50.0-59.9, adult Z68.43 [place] [id number] [place] [address] 00339- 2297 Sep, [place] [id number] [place] [address] 20953- 3453 Sep, [place] [id number] [place] [address] 39373- 4109 Sep, Chest pain, unspecified type R07.9 ; BMI 50.0-59.9, adult Z68.43 and Essential hypertension I10 IMMUNIZATIONS No Known Immunizations SOCIAL HISTORY Never Assessed REASON FOR VISIT PLAN OF CARE VITAL SIGNS MEDICATIONS Unknown Medications RESULTS No Results PROCEDURES No Known procedures INSTRUCTIONS MEDICATIONS ADMINISTERED No Known Medications MEDICAL (GENERAL) HISTORY Type Description Date Medical History HTN Medical History ASTHMA Medical History PTSD Medical History fatty tumor Surgical History Hospitalization History asthma exacerbations several times
[2018-09-08] MEDS ORDERED: ALPR0.25 PO (22:56)
[2018-09-08] MEDS ORDERED: VENL75CA PO (22:57)
[2018-09-08] MEDS ORDERED: TEMA7.5C PO (22:58)
[2018-09-08] MEDS ORDERED: LORA5TAB9 PO (22:58)
[2018-09-08] MEDS ORDERED: CETI10CA PO (22:59)
--- NOTE | 2018-09-08 23:09 | ED General ---
General Chief Complaint: Psych/Social Disorder Stated Complaint: POSSIBLE PANIC ATTACK Nursing Triage Note: pt reports 8 panic attacks today, pt with hx of anxiety, more attacks today Nursing Sepsis Screen: No Definite Risk History of Present Illness Date Seen by Provider: Sep 08, 2018 Time Seen by Provider: 23:05 Initial Comments Patient is a 43-year-old female who presents with increased anxiety, palpitations and dizziness after missing home medication dose of Xanax this evening. Patient states she was helping her friend clean out his house who was using chemicals which made her feel short of breath and anxious. She went to take her Xanax from her purse and realized that was missing. Patient has had intermittent panic attacks throughout the evening. Feels as though her head is spinning in her chest is pounding. Denies nausea vomiting, sweats, headache, blurred vision, focal extremity weakness or loss of sensation. No other acute symptoms or complaints. Timing/Duration: 4-6 Hours, Getting Worse, Intermittent Severity: Moderate Modifying Factors: improves with Medication Associated Systoms: No Chest Pain, No Cough, No Diaphoresis, No Nausea/Vomiting Allergies and Home Medications Allergies Coded Allergies: acetaminophen (Verified Allergy, Unknown, 12/07/17) hydrocodone (Verified Allergy, Unknown, 12/07/17) latex (Verified Allergy, Unknown, HIVES, 12/07/17) metronidazole (Verified Allergy, Unknown, ANAPHYLAXIS, 12/07/17) shellfish derived (Verified Allergy, Unknown, ANAPHYLAXIS, 12/07/17) sulfamethoxazole (Verified Allergy, Unknown, ANAPHYLAXIS, 12/07/17) tramadol (Verified Allergy, Unknown, 12/07/17) trimethoprim (Verified Allergy, Unknown, ANAPHYLAXIS, 12/07/17) Uncoded Allergies: SSRI (Allergy, Severe, anaphylaxis, 09/08/18) Home Medications Aspirin 81 Mg Tab.chew, 81 MG PO DAILY, (Reported) Lisinopril 20 Mg Tablet, 20 MG PO DAILY, (Reported) Omeprazole 40 Mg Capsule.dr, 40 MG PO DAILY, (Reported) Patient Home Medication List Home Medication List Reviewed: Yes Review of Systems Review of Systems Constitutional: No chills, No diaphoresis; dizziness; No fever EENTM: hoarseness Respiratory: cough; No short of breath Cardiovascular: No chest pain; palpitations Gastrointestinal: No abdominal pain Genitourinary: no symptoms reported Musculoskeletal: no symptoms reported Skin: no symptoms reported Psychiatric/Neurological: Denies Paresthesia, Denies Seizure, Denies Weakness Past Trqwced-Pwbvyt-Jylpjj Hx Patient Social History Alcohol Beverage of Choice: Whiskey, Other Type Used: Cigarettes Recent Foreign Travel: No Contact w/Someone Who Travel: No Recent Infectious Disease Expo: No Recent Hopitalizations: No Immunizations Up To Date Date of Pneumonia Vaccine: Apr 19, 2016 Date of Influenza Vaccine: Apr 19, 2016 Seasonal Allergies Seasonal Allergies: Yes Past Medical History Section, Tubal Ligation Asthma, COPD Currently Using CPAP: No Currently Using BIPAP: No Hypertension Reproductive Disorders: No Female Reproductive Disorders: Denies LIVING SUPERVISOR History: Tubal Ligation Sexually Transmitted Disease: No Anxiety, PTSD, Depression Physical Exam Vital Signs Vital Signs - First Documented 09/08/18 22:50 Temp 97.2 Pulse 105 Resp 18 B/P (MAP) 112/72 (85) Pulse Ox 98 O2 Delivery Room Air Capillary Refill : Less Than 3 Seconds Height, Weight, BMI Height: 5'1.00" Weight: 280lbs. 0.0oz. 127.994280rx; 54.4 BMI Method:Stated General Appearance: No Apparent Distress, Obese Eyes: Bilateral Eye Normal Inspection, Bilateral Eye PERRL, Bilateral Eye EOMI HEENT: PERRL/EOMI, TMs Normal, Normal ENT Inspection, Pharynx Normal Neck: Full Range of Motion, Non Tender Respiratory: Chest Non Tender, Lungs Clear, Normal Breath Sounds, No Accessory Muscle Use Cardiovascular: Regular Rate, Rhythm Back: Normal Inspection Extremity: Normal Capillary Refill Neurologic/Psychiatric: Oriented x3; No Facial Droop, No Motor Weakness; Other (anxious affect) Skin: Normal Color Progress/Results/Core Measures Suspected Sepsis Recent Fever Within 48 Hours: No Infection Criteria Present: None New/Unexplained Altered Menta: No Sepsis Screen: No Definite Risk SIRS Temperature:97.2 Pulse: 105 Respiratory Rate: 18 Blood Pressure 112 /72 Mean: 85 Results/Orders Vital Signs/I&O 09/08/18 22:50 Temp 97.2 Pulse 105 Resp 18 B/P (MAP) 112/72 (85) Pulse Ox 98 O2 Delivery Room Air Capillary Refill : Less Than 3 Seconds Blood Pressure Mean: 85 Progress Note : Time: 23:19 Progress Note Symptoms consistent with anxiety/panic attack exacerbation by missed medications. Patient does have medications at home but she plans on taking she. She drove herself and has her son with her. Recommend resuming medications as currently prescribed and following up with primary care physician as needed exam. Departure Impression Primary Impression: Anxiety attack Additional Impressions: URI (upper respiratory infection) Dizziness Disposition: 01 HOME, SELF-CARE Condition: Improved Departure-Patient Inst. Patient Instructions: Panic Disorder (DC) Add. Discharge Instructions: Please go home and rest. Continue home medications and follow up with your PCP in the morning if symptoms persist. All discharge instructions reviewed with patient and/or family. Voiced understanding. NATY LAURA DO Sep 08, 2018 23:09
[2018-09-08 23:15] VITALS: BP 108/75
== END 2018-09-08 23:15 | disposition home or self-care (01) ==
LOC: EDUNIT# 22:33 → ER FS 22:36
DX: F41.0 Panic disorder [episodic paroxysmal anxiety] (principal); J06.9 Acute upper respiratory infection, unspecified; R42 Dizziness and giddiness; J44.9 Chronic obstructive pulmonary disease, unspecified; I10 Essential (primary) hypertension; F43.10 Post-traumatic stress disorder, unspecified; F32.9 Major depressive disorder, single episode, unspecified; Z91.048 Other nonmedicinal substance allergy status; Z88.5 Allergy status to narcotic agent; Z88.2 Allergy status to sulfonamides; Z88.6 Allergy status to analgesic agent; Z88.8 Allergy status to other drugs, medicaments and biological substances; Z79.82 Long term (current) use of aspirin; Z98.890 Other specified postprocedural states; Z98.51 Tubal ligation status
CPT/HCPCS: 99283